=== PATIENT | female | born 1940 | race African-American/Black ===

== ENCOUNTER 2019-07-28 06:02 | Inpatient (IN) | payer BC ==
[~2019-07-28] VITALS: Ht 160 cm; Wt 58.1 kg
[~2019-07-28 06:02] MED LIST: AMLO10TA80 PO; ATOR-2 PO; DONE5TAB33 PO; ESCI10TA54 PO; LINA5TAB PO; LISI40TA4 PO; METF-414 PO; MIRT15TA6 PO; QUET25TA34 PO
[2019-07-28] MEDS ORDERED: SKIN ADHESIVE 0.7 GM EA TOP ONE (07:13)
[2019-07-28] MEDS ORDERED: BUPIVACAINE HCL 0.5% (5MG/ML) 50ML ONE (07:14)
[2019-07-28] MEDS ORDERED: MIDAZOLAM HCL 2 MG/2 ML VIAL ONE (07:34)
[2019-07-28] MEDS ORDERED: PROPOFOL 200MG/20ML VIAL IV ONE ×2 (07:34→08:10)
[2019-07-28] MEDS ORDERED: FENTANYL CITRATE/PF 50MCG/ML 2ML VIAL ONE (07:34)
[2019-07-28] MEDS ORDERED: DEXAMETHASONE 4MG/ML 1ML VIAL ONE (07:43)
[2019-07-28] MEDS ORDERED: ONDANSETRON HCL 4MG/2ML INJ ONE (07:43)
[2019-07-28] MEDS ORDERED: LABETALOL 5MG/ML SYR 20 MG/4 ML SYRINGE IV PRN (08:15)
[2019-07-28] MEDS ORDERED: MEPERIDINE HCL/PF 25MG/ML CPJ IV PRN (08:15)
[2019-07-28] MEDS ORDERED: ONDANSETRON HCL 4MG/2ML INJ IV PRN ×2 (08:15→11:30)
[2019-07-28] MEDS ORDERED: LABETALOL HCL 5MG/ML VIAL 20ML IV ONE (08:49)
[2019-07-28] MEDS: SODIUM CHLORIDE 0.9% 1,000 ML IV SCH (09:11)
[2019-07-28] MEDS ORDERED: BETA55 BOTHEYE (09:17)
[2019-07-28] MEDS ORDERED: XALAO EACHEYE (09:17)
[2019-07-28] MEDS: HYDROMORPHONE HCL/PF 2MG/ML CPJ IV PRN ×4 (09:23→09:41)
[2019-07-28] MEDS ORDERED: HYDROCODONE/ACETAMINOPHEN 5/325MG TABLET PO PRN (11:30)
[2019-07-28] MEDS ORDERED: MORPHINE SULFATE 4 MG/ML CPJ (NOT FOR IM USE) IV PRN (11:30)
[2019-07-28] MEDS ORDERED: MORPHINE SULFATE 2 MG/ML CPJ (NOT FOR IM USE) IV PRN (11:30)
[2019-07-28 12:29] VITALS: BP 158/67
[2019-07-28 14:28] VITALS: BP 158/67
[2019-07-28] MEDS: DEXT 5%/0.45% NACL KCL 20MEQ/L 1,000 ML IV SCH (15:28)
[2019-07-28 16:00] VITALS: BP 166/60
[2019-07-28 20:00] VITALS: BP 160/89
[2019-07-28] MEDS: LEVOBUNOLOL 0.5% BOTHEYE SCH (21:28)
[2019-07-28] MEDS: LATANOPROST 0.005% OPHTH DROPS 2.5ML EACHEYE SCH (21:28)
[2019-07-28] MEDS: ATORVASTATIN CALCIUM 40MG TABLET PO SCH (21:29)
[2019-07-28] MEDS: MIRTAZAPINE 15MG TABLET PO SCH (21:29)
[2019-07-28] MEDS: CITALOPRAM HYDROBROMIDE 10MG TABLET PO SCH (21:29)
[2019-07-28] MEDS: AMLODIPINE 10MG TABLET PO SCH (21:30)
[2019-07-28] MEDS: DONEPEZIL HCL 5MG TABLET PO SCH (21:32)
[2019-07-28] MEDS: SODIUM CHLORIDE 0.9% INJ 3ML FLUSH IVF SCH (21:33)
[2019-07-29] VITALS (7 sets, daily range): BP systolic 114–181; BP diastolic 56–78
[2019-07-29] MEDS: DEXT 5%/0.45% NACL KCL 20MEQ/L 1,000 ML IV SCH ×2 (01:06→10:27)
[2019-07-29] MEDS: SODIUM CHLORIDE 0.9% INJ 3ML FLUSH IVF SCH ×4 (01:06→21:16)
[2019-07-29] MEDS: LISINOPRIL 40MG TABLET PO SCH (08:33)
[2019-07-29] MEDS: LINAGLIPTIN 5MG TABLET PO SCH (08:33)
[2019-07-29] MEDS: QUETIAPINE FUMARATE 25MG TABLET PO SCH ×2 (08:33→16:31)
[2019-07-29] MEDS ORDERED: CLONIDINE 0.1MG TABLET PO NR (16:15)
[2019-07-29] MEDS: LEVOBUNOLOL 0.5% BOTHEYE SCH (16:32)
[2019-07-29] MEDS ORDERED: DEXTROSE 50% WATER 50ML SYRINGE IV PRN (17:45)
[2019-07-29] MEDS: INSULIN LISPRO 100 UNITS/ML SUBCUT SCH ×2 (17:50→21:15)
[2019-07-29] MEDS: ATORVASTATIN CALCIUM 40MG TABLET PO SCH (20:48)
[2019-07-29] MEDS: CITALOPRAM HYDROBROMIDE 10MG TABLET PO SCH (20:48)
[2019-07-29] MEDS: MIRTAZAPINE 15MG TABLET PO SCH (20:49)
[2019-07-29] MEDS: LATANOPROST 0.005% OPHTH DROPS 2.5ML EACHEYE SCH (20:49)
[2019-07-29] MEDS: AMLODIPINE 10MG TABLET PO SCH (20:49)
[2019-07-29] MEDS: DONEPEZIL HCL 5MG TABLET PO SCH (20:55)
[2019-07-29] MEDS: BLOOD SUGAR DIAGNOSTIC STRIP TEST SCH (20:56)
[2019-07-30] VITALS: BP 121/55
[2019-07-30 04:00] VITALS: BP 119/52
[2019-07-30] MEDS: BLOOD SUGAR DIAGNOSTIC STRIP TEST SCH ×4 (06:30→20:47)
[2019-07-30] MEDS: SODIUM CHLORIDE 0.9% INJ 3ML FLUSH IVF SCH ×3 (06:34→20:52)
[2019-07-30] MEDS: DEXT 5%/0.45% NACL KCL 20MEQ/L 1,000 ML IV SCH (06:35)
[2019-07-30 06:36] LABS: HEMATOCRIT 29.9 % (36.0-48.0); HEMOGLOBIN 9.9 g/dL (12.0-16.0); MEAN CORPUSCULAR HEMOGLOBIN 28.2 pg (28.0-32.0); MEAN CORPUSCULAR VOLUME 85.1 fL (81.0-99.0); PLATELET 195 x1000/uL (130-400); RED BLOOD CELL COUNT 3.51 mill/uL (4.2-5.4); RED CELL DISTRIBUTION WIDTH 16.2 % (11.6-14.6)
[2019-07-30 06:54] LABS: CHLORIDE 108 mEq/L (98-107)
[2019-07-30 08:00] VITALS: BP 131/52
[2019-07-30] MEDS: LISINOPRIL 40MG TABLET PO SCH (08:29)
[2019-07-30] MEDS: QUETIAPINE FUMARATE 25MG TABLET PO SCH ×2 (08:29→17:24)
[2019-07-30] MEDS: LINAGLIPTIN 5MG TABLET PO SCH (08:29)
[2019-07-30] MEDS: LEVOBUNOLOL 0.5% BOTHEYE SCH ×2 (08:30→17:24)
[2019-07-30] MEDS: INSULIN LISPRO 100 UNITS/ML SUBCUT SCH ×4 (08:30→21:43)
[2019-07-30] MEDS: METFORMIN HCL 500MG TABLET PO SCH ×2 (09:26→17:24)
[2019-07-30 12:00] VITALS: BP 116/44
[2019-07-30] MEDS: HYDROCODONE/ACETAMINOPHEN 5/325MG TABLET PO PRN (14:34)
[2019-07-30 16:00] VITALS: BP 109/46
[2019-07-30 20:00] VITALS: BP 110/47
[2019-07-30] MEDS: CITALOPRAM HYDROBROMIDE 10MG TABLET PO SCH (20:45)
[2019-07-30] MEDS: MIRTAZAPINE 15MG TABLET PO SCH (20:45)
[2019-07-30] MEDS: DONEPEZIL HCL 5MG TABLET PO SCH (20:45)
[2019-07-30] MEDS: AMLODIPINE 10MG TABLET PO SCH (20:46)
[2019-07-30] MEDS: ATORVASTATIN CALCIUM 40MG TABLET PO SCH (20:46)
[2019-07-30] MEDS: LATANOPROST 0.005% OPHTH DROPS 2.5ML EACHEYE SCH (20:47)
[2019-07-31] VITALS: BP 129/47
[2019-07-31 04:00] VITALS: BP 123/60
[2019-07-31 06:52] LABS: T4 FREE 1.01 ng/dL (0.76-1.46)
[2019-07-31] MEDS: BLOOD SUGAR DIAGNOSTIC STRIP TEST SCH ×4 (07:20→21:32)
[2019-07-31] MEDS: INSULIN LISPRO 100 UNITS/ML SUBCUT SCH ×4 (07:50→21:00)
[2019-07-31 08:00] VITALS: BP 124/52
[2019-07-31] MEDS: LEVOBUNOLOL 0.5% BOTHEYE SCH ×2 (08:25→16:45)
[2019-07-31] MEDS: LISINOPRIL 40MG TABLET PO SCH (08:25)
[2019-07-31] MEDS: QUETIAPINE FUMARATE 25MG TABLET PO SCH ×2 (08:25→16:45)
[2019-07-31] MEDS: METFORMIN HCL 500MG TABLET PO SCH ×2 (08:25→16:45)
[2019-07-31] MEDS: LINAGLIPTIN 5MG TABLET PO SCH (08:25)
[2019-07-31] MEDS: SODIUM CHLORIDE 0.9% INJ 3ML FLUSH IVF SCH ×2 (08:31→17:22)
[2019-07-31] MEDS: HYDROCODONE/ACETAMINOPHEN 5/325MG TABLET PO PRN (11:35)
[2019-07-31 12:00] VITALS: BP 163/54
[2019-07-31] MEDS: CLONIDINE 0.1MG TABLET PO PRN (13:32)
[2019-07-31 15:29] LABS: CLARITY URINE CLEAR (CLEAR); COLOR URINE YELLOW (YELLOW); KETONES URINE NEGATIVE (NEGATIVE); LEUKOCYTE ESTERASE URINE NEGATIVE (NEGATIVE); NITRITE URINE NEGATIVE (NEGATIVE); OCCULT BLOOD URINE NEGATIVE (NEGATIVE); PROTEIN URINE 1+ (NEGATIVE); SPECIFIC GRAVITY URINE 1.012 (1.005-1.030); UROBILINOGEN URINE 0.2 E.U./dL (0.2-1.0)
[2019-07-31 16:00] VITALS: BP 115/50
[2019-07-31 20:00] VITALS: BP 141/57
[2019-07-31] MEDS: LATANOPROST 0.005% OPHTH DROPS 2.5ML EACHEYE SCH ×2 (21:00→21:47)
[2019-07-31] MEDS: MIRTAZAPINE 15MG TABLET PO SCH ×2 (21:00→21:46)
[2019-07-31] MEDS: AMLODIPINE 10MG TABLET PO SCH ×2 (21:00→21:47)
[2019-07-31] MEDS: ATORVASTATIN CALCIUM 40MG TABLET PO SCH ×2 (21:00→21:46)
[2019-07-31] MEDS: DONEPEZIL HCL 5MG TABLET PO SCH ×2 (21:00→21:46)
[2019-07-31] MEDS: CITALOPRAM HYDROBROMIDE 10MG TABLET PO SCH ×2 (21:00→21:46)
[2019-07-31] MEDS: SODIUM CHLORIDE 0.9% 1,000 ML IV SCH (22:04)
[2019-08-01] MEDS: SODIUM CHLORIDE 0.9% INJ 3ML FLUSH IVF SCH ×3 (03:38→16:45)
[2019-08-01 04:00] VITALS: BP 141/59
[2019-08-01] MEDS: BLOOD SUGAR DIAGNOSTIC STRIP TEST SCH ×4 (07:34→21:37)
[2019-08-01] MEDS: INSULIN LISPRO 100 UNITS/ML SUBCUT SCH ×4 (07:50→21:00)
[2019-08-01 08:00] VITALS: BP 172/68
[2019-08-01] MEDS: QUETIAPINE FUMARATE 25MG TABLET PO SCH ×2 (08:07→16:42)
[2019-08-01] MEDS: LEVOBUNOLOL 0.5% BOTHEYE SCH ×2 (08:07→16:40)
[2019-08-01] MEDS: LISINOPRIL 40MG TABLET PO SCH (08:07)
[2019-08-01] MEDS: METFORMIN HCL 500MG TABLET PO SCH ×2 (08:07→16:44)
[2019-08-01] MEDS: LINAGLIPTIN 5MG TABLET PO SCH (08:07)
[2019-08-01 12:00] VITALS: BP 148/55
[2019-08-01 16:00] VITALS: BP 122/66
[2019-08-01] MEDS: LATANOPROST 0.005% OPHTH DROPS 2.5ML EACHEYE SCH (16:40)
[2019-08-01] MEDS: CITALOPRAM HYDROBROMIDE 10MG TABLET PO SCH (16:43)
[2019-08-01] MEDS: MIRTAZAPINE 15MG TABLET PO SCH (16:43)
[2019-08-01] MEDS: DONEPEZIL HCL 5MG TABLET PO SCH (16:43)
[2019-08-01] MEDS: AMLODIPINE 10MG TABLET PO SCH (16:44)
[2019-08-01] MEDS: ATORVASTATIN CALCIUM 40MG TABLET PO SCH (16:44)
[2019-08-01 20:00] VITALS: BP 147/59
[2019-08-02] VITALS: BP 150/50
[2019-08-02] MEDS: SODIUM CHLORIDE 0.9% INJ 3ML FLUSH IVF SCH ×4 (03:05→21:29)
[2019-08-02 04:00] VITALS: BP 146/70
[2019-08-02] MEDS: BLOOD SUGAR DIAGNOSTIC STRIP TEST SCH ×4 (06:47→21:29)
[2019-08-02 07:15] LABS: HEMATOCRIT 28.2 % (36.0-48.0); HEMOGLOBIN 9.4 g/dL (12.0-16.0); MEAN CORPUSCULAR HEMOGLOBIN 28.7 pg (28.0-32.0); MEAN CORPUSCULAR VOLUME 85.6 fL (81.0-99.0); PLATELET 256 x1000/uL (130-400); RED BLOOD CELL COUNT 3.29 mill/uL (4.2-5.4); RED CELL DISTRIBUTION WIDTH 15.7 % (11.6-14.6)
[2019-08-02 07:34] LABS: CHLORIDE 112 mEq/L (98-107)
[2019-08-02] MEDS: INSULIN LISPRO 100 UNITS/ML SUBCUT SCH ×4 (07:50→21:00)
[2019-08-02 08:00] VITALS: BP 162/45
[2019-08-02] MEDS: LINAGLIPTIN 5MG TABLET PO SCH (08:50)
[2019-08-02] MEDS: METFORMIN HCL 500MG TABLET PO SCH ×2 (08:50→17:18)
[2019-08-02] MEDS: LISINOPRIL 40MG TABLET PO SCH (08:50)
[2019-08-02] MEDS: LEVOBUNOLOL 0.5% BOTHEYE SCH ×2 (08:50→17:00)
[2019-08-02] MEDS: QUETIAPINE FUMARATE 25MG TABLET PO SCH ×2 (08:50→17:01)
[2019-08-02 12:00] VITALS: BP 162/60
[2019-08-02] MEDS: CLONIDINE 0.1MG TABLET PO PRN (15:07)
[2019-08-02 16:00] VITALS: BP 160/70
[2019-08-02] MEDS: MIRTAZAPINE 15MG TABLET PO SCH (17:01)
[2019-08-02] MEDS: ATORVASTATIN CALCIUM 40MG TABLET PO SCH (17:01)
[2019-08-02] MEDS: CITALOPRAM HYDROBROMIDE 10MG TABLET PO SCH (17:01)
[2019-08-02] MEDS: AMLODIPINE 10MG TABLET PO SCH (17:02)
[2019-08-02] MEDS: DONEPEZIL HCL 5MG TABLET PO SCH (17:03)
[2019-08-02] MEDS: LATANOPROST 0.005% OPHTH DROPS 2.5ML EACHEYE SCH (17:05)
[2019-08-02 20:00] VITALS: BP 125/56
[2019-08-03] VITALS: BP 121/55
[2019-08-03 04:00] VITALS: BP 134/61
[2019-08-03] MEDS: SODIUM CHLORIDE 0.9% INJ 3ML FLUSH IVF SCH ×2 (06:00→13:16)
[2019-08-03] MEDS: BLOOD SUGAR DIAGNOSTIC STRIP TEST SCH ×3 (07:02→17:20)
[2019-08-03] MEDS: INSULIN LISPRO 100 UNITS/ML SUBCUT SCH ×3 (07:50→17:26)
[2019-08-03 08:00] VITALS: BP 146/50
[2019-08-03] MEDS: LINAGLIPTIN 5MG TABLET PO SCH (08:15)
[2019-08-03] MEDS: LISINOPRIL 40MG TABLET PO SCH (08:15)
[2019-08-03] MEDS: QUETIAPINE FUMARATE 25MG TABLET PO SCH ×2 (08:15→17:24)
[2019-08-03] MEDS: METFORMIN HCL 500MG TABLET PO SCH ×2 (08:15→17:25)
[2019-08-03] MEDS: LEVOBUNOLOL 0.5% BOTHEYE SCH ×2 (08:16→17:25)
[2019-08-03 12:00] VITALS: BP 140/65
[2019-08-03 16:00] VITALS: BP 145/53
[2019-08-03] MEDS: LATANOPROST 0.005% OPHTH DROPS 2.5ML EACHEYE SCH (17:00)
[2019-08-03] MEDS: ATORVASTATIN CALCIUM 40MG TABLET PO SCH (17:24)
[2019-08-03] MEDS: AMLODIPINE 10MG TABLET PO SCH (17:25)
[2019-08-03] MEDS: DONEPEZIL HCL 5MG TABLET PO SCH (17:25)
[2019-08-03] MEDS: MIRTAZAPINE 15MG TABLET PO SCH (17:25)
[2019-08-03] MEDS: CITALOPRAM HYDROBROMIDE 10MG TABLET PO SCH (17:25)
[2019-08-03 17:44] VITALS: BP 139/83
== END 2019-08-03 19:40 | DRG 353 ==
LOC: OR 06:02 → 6EST 06:03
PROVIDERS: ADMIT Internal Medicine; ATTEND Internal Medicine
PROC: 0WQF0ZZ Repair Abdominal Wall, Open Approach (ICD-10-PCS; principal; 2019-07-28)
DX: K43.2 Incisional hernia without obstruction or gangrene (principal); E43 Unspecified severe protein-calorie malnutrition; E11.9 Type 2 diabetes mellitus without complications; I11.9 Hypertensive heart disease without heart failure; Z86.73 Personal history of transient ischemic attack (TIA), and cerebral infarction without residual deficits; Z85.3 Personal history of malignant neoplasm of breast; Z90.710 Acquired absence of both cervix and uterus; Z90.13 Acquired absence of bilateral breasts and nipples; Z79.4 Long term (current) use of insulin; Z68.22 Body mass index [BMI] 22.0-22.9, adult
CPT/HCPCS: 36415; 71045; 80048; 80061; 81003; 82962; 83036; 84439; 84443; 85027; 93005; 97110; 97116; 97162; 97530; C1781; C1893; J1100; J1170; J1815; J2175; J2250; J2405; J2704; J3010; J3490